=== PATIENT | female | born 1975 | race Caucasian/White ===

== ENCOUNTER → 2016-12-30 | Emergency (ER) | payer SELFPAY ==
[~2016-12-30] MED LIST: KETOROLAC TROMETHAMINE 30 MG/1 ML VIAL IVPUSH ONE; KETOROLAC TROMETHAMINE 30 MG/1 ML VIAL ONE; ONDANSETRON 4 MG/2 ML VIAL IVPB ONE; ONDANSETRON 4 MG/2 ML VIAL ONE; PENICILLIN G BENZATHINE 2,400,000 UNIT/4 ML PFS ONE; SODIUM CHLORIDE 1,000 ML IV STA; morphine CARPU-JECT 4 MG/1 ML DISP.SYRIN IVPUSH ONE; morphine CARPU-JECT 4 MG/1 ML DISP.SYRIN ONE
--- NOTE | 2016-12-30 01:55 | PDOC ---
History of Present Illness - General History Source: Patient Exam Limitations: No Limitations - History of Present Illness Initial Comments: 12/30/16 02:28 The patient is a 41 year old female, with a significant past medical history of hypertension, who presents to the emergency department complaining of abdominal pain for approximately 1 day. The patient reports the pain began yesterday morning and was localized at the umbilicus. However, as the the day went on, the pain radiated into the RLQ. She reports associated nausea and 4 episodes of nonbloody/nonbilious vomiting. The patient denies diarrhea or constipation. She states she took tylenol and midol with no relief of symptoms. She reports similar abdominal pain approximately 2 months ago. The patient reports she has an IUD in place. The patient denies any fever, chills, cough, headache or dizziness. The patient denies any dysuria, hematuria, frequency, or urgency. The patient denies any recent travel or sick contacts. Allergies: None reported. Past Surgical History: None reported. Social History: Non-smoker. Denies alcohol or drug use. <Judith Prescott - Last Filed: 12/30/16 05:29> - General History Source: Patient <Lukas Maldonado - Last Filed: 12/30/16 05:45> - General Stated Complaint: ABD PAIN Time Seen by Provider: 12/30/16 01:55 Past History <Judith Prescott - Last Filed: 12/30/16 05:29> - Past Medical History HTN: Yes - Psycho/Social/Smoking Cessation Hx Anxiety: No Suicidal Ideation: No Smoking History: Never smoked Have you smoked in the past 12 months: No Hx Alcohol Use: No Drug/Substance Use Hx: No Substance Use Type: None <BooneLukas rendon - Last Filed: 12/30/16 05:45> - Past Medical History Allergies/Adverse Reactions: Allergies Allergy/AdvReac Type Severity Reaction Status Date / Time No Known Allergies Allergy Verified 12/30/16 01:59 Home Medications: Ambulatory Orders Amlodipine Besylate [Norvasc -] 2.5 mg PO BID #14 tab 05/24/16 Ibuprofen 800 mg PO TID #30 tablet 12/30/16 Review of Systems - Review of Systems Able to Perform ROS?: Yes Comments:: 12/30/16 02:29 CONSTITUTIONAL: Absent: fever, no chills, no fatigue EYES: Absent: visual changes ENT: Absent: ear pain, no sore throat CARDIOVASCULAR: Absent: chest pain, no palpitations RESPIRATORY: Absent: cough, no SOB GI: Present: +RLQ abdominal pain, +pain along the umbilicus, +nausea, +vomiting Absent: no constipation, no diarrhea GENITOURINARY: Absent: dysuria, no frequency, no hematuria MUSCULOSKELETAL: Absent: back pain, no arthralgia, no myalgia SKIN: Absent: rash NEURO: Absent: headache <KenyonErnestinacanelo - Last Filed: 12/30/16 05:29> *Physical Exam - Vital Signs Last Vital Signs Temp Pulse Resp BP Pulse Ox 97.5 F L 75 20 184/116 100 12/30/16 01:59 12/30/16 01:59 12/30/16 01:59 12/30/16 01:59 12/30/16 01:59 - Physical Exam Comments: 12/30/16 02:30 GENERAL: Well-appearing, well-nourished. No apparent distress. HEENT: Normocephalic, atraumatic. PERRL, EOM intact. CARDIOVASCULAR: Normal S1, S2. Regular rate and rhythm. PULMONARY: Clear to auscultation bilaterally. ABDOMINAL: Soft. Non-distended. Tenderness to palpation to the RLQ, but no guarding or rebound. Positive McBurneys point. Positive Rovsings. No organomegaly. Normoactive bowel sounds. EXTREMITIES: Normal ROM in all four extremities. No gross deformities. SKIN: Warm, dry. No rash NEUROLOGICAL: No focal neurological deficits. <Judith Prescott - Last Filed: 12/30/16 05:29> Heart Score/ECG Review - ECG Impressions Comment:: 12/30/16 05:29 Vent. Rate: 92 bpm IMPRESSION: Normal sinus rhythm. Possible left atrial enlargement. <Judith Prescott - Last Filed: 12/30/16 05:29> ED Treatment Course - LABORATORY CBC & Chemistry Diagram: 12/30/16 02:42 12/30/16 02:42 - RADIOLOGY Radiograph Interpretation: 12/30/16 05:30 EXAM: CT abdomen and pelvis INTERPRETED BY: Dr. Ortega REVIEWED BY: Dr. Maldonado IMPRESSION: No bowel obstruction, colitis, free fluid or free air. Normal appendix. Unremarkable pancreas, kidneys and gallbladder. IUD in uterus. Small umbilical hernia containing fat. <Judith Prescott - Last Filed: 12/30/16 05:29> - LABORATORY CBC & Chemistry Diagram: 12/30/16 02:42 12/30/16 02:42 <Lukas Maldonado - Last Filed: 12/30/16 05:45> Medical Decision Making - Medical Decision Making 12/30/16 05:45 Dr. Maldonado: The scribe's documentation has been prepared under my direction and personally reviewed by me in its entirery. I confirm that the note above accurately reflects all work, treatment, procedures, and medical decision making performed by me. <Lukas Maldonado - Last Filed: 12/30/16 05:45> *DC/Admit/Observation/Transfer - Attestations Scribe Attestion: 12/30/16 02:30 Documentation prepared by Judith Prescott, acting as medical staff physician for Lukas Maldonado DO. <Judith Prescott - Last Filed: 12/30/16 05:29> - Discharge Dispostion Admit: No <Lukas Maldonado - Last Filed: 12/30/16 05:45> Diagnosis at time of Disposition: Umbilical hernia Qualifiers: Obstruction and gangrene presence: without obstruction or gangrene Qualified Code(s): K42.9 - Umbilical hernia without obstruction or gangrene - Discharge Dispostion Disposition: HOME Condition at time of disposition: Stable - Referrals Referrals: Freddie Martin MD [Staff Physician] - - Patient Instructions Printed Discharge Instructions: DI Umbilical Hernia-Child Print Language: ESTONIAN
[2016-12-30 02:00] VITALS: BMI 30.9
[2016-12-30 02:56] LABS: BASOPHIL 0.5 % (0-2.0); EOSINOPHIL 0.9 % (0-4.5); MCH 20.5 pg (25.7-33.7); MEAN CELL VOLUME 66.1 fl (80-96); MEAN PLT VOLUME 9.4 fl (7.5-11.1); NEUTROPHILS 82.7 % (42.8-82.8); PLATELET COUNT 205 K/MM3 (134-434); RDW 17.5 % (11.6-15.6); URINE APPEARANCE CLEAR; URINE BILIRUBIN NEGATIVE (NEGATIVE); URINE GLUCOSE (UA) NEGATIVE (NEGATIVE); URINE KETONE NEGATIVE (NEGATIVE); URINE NITRITE NEGATIVE (NEGATIVE); URINE UROBILINOGEN NEGATIVE E.U./dl (0.2-1.0)
[2016-12-30 02:57] LABS: URINE BLOOD 3+ (NEGATIVE); URINE COLOR PINK; URINE LEUK ESTERASE TRACE (NEGATIVE); URINE PROTEIN 1+ (NEGATIVE)
[2016-12-30 03:05] LABS: URINE MUCUS RARE; URINE RBC 3066 /hpf (0-3); URINE WBC 44 /hpf (3-5)
[2016-12-30 03:17] LABS: ANION GAP 11 (8-16); CALCIUM 8.7 mg/dL (8.5-10.1); CO2 24 mmol/L (21-32); CREATININE 0.7 mg/dL (0.55-1.02); GLUCOSE,RANDOM 104 mg/dL (74-106); SGOT/AST 18 U/L (15-37); SGPT/ALT 29 U/L (12-78); TOT PROT 8.3 g/dl (6.4-8.2)
[2016-12-30 03:18] LABS: ALK PHOS 107 U/L (45-117)
[2016-12-30 06:40] VITALS: BP 160/95; PULSE 88; TEMP 98.9
--- NOTE | 2016-12-30 16:34 | EKG ---
Test Reason : Blood Pressure : / mmHG Vent. Rate : 092 BPM Atrial Rate : 092 BPM P-R Int : 126 ms QRS Dur : 074 ms QT Int : 374 ms P-R-T Axes : 039 033 021 degrees QTc Int : 462 ms NORMAL SINUS RHYTHM POSSIBLE LEFT ATRIAL ENLARGEMENT NO PREVIOUS ECGS AVAILABLE Confirmed by MD RAVINDRA, MAYLIN ([id number]) on 12/30/2016 4:34:46 PM Referred By: Confirmed By:MAYLIN WAITE MD
== END | disposition home or self-care (01) ==
LOC: JER 01:10
PROC: 3E033NZ Introduction of Analgesics, Hypnotics, Sedatives into Peripheral Vein, Percutaneous Approach (ICD-10-PCS; principal; 2016-12-30)
PROC: 3E0333Z Introduction of Anti-inflammatory into Peripheral Vein, Percutaneous Approach (ICD-10-PCS; 2016-12-30)
PROC: 3E033GC Introduction of Other Therapeutic Substance into Peripheral Vein, Percutaneous Approach (ICD-10-PCS; 2016-12-30)
DX: K42.9 Umbilical hernia without obstruction or gangrene (principal); I10 Essential (primary) hypertension
CPT/HCPCS: 36415; 74177-TC; 80053; 81003; 81015; 83690; 84703; 85025; 93005; 93010; 99282-25

== ENCOUNTER 2017-01-02 21:34 | Emergency (ER) | payer SELFPAY ==
[2017-01-02 21:44] VITALS: BP 168/112; PULSE 121; TEMP 101.1; BMI 24.4
--- NOTE | 2017-01-02 22:02 | PDOC ---
History of Present Illness - General History Source: Patient Exam Limitations: No Limitations - History of Present Illness Initial Comments: 01/02/17 22:22 The patient is a 41 year old female with significant past medical history of hypertension who presents to the ED with 1 day of fever. Patient reports she developed a fever with tmax of 101. She also has complaints of sore throat for the past week. She denies chills and diaphoresis. Patient was seen here on 12/30 for abdominal pain where she had a abdomen/pelvis CT that revealed a small umbilical hernia containing fat. She was treated and discharged. At time of evaluation, she denies abdominal pain, nausea, vomiting, or diarrhea. The patient denies fever, cough, SOB, chest pain, and palpitations. Allergies: NKDA Social History: No alcohol, tobacco, or drug use reported. Past Surgical History: None reported PCP: None reported <Shaye Tovar - Last Filed: 01/02/17 22:22> <Ted Solo - Last Filed: 01/02/17 22:55> - General Chief Complaint: Pain, Acute Stated Complaint: FEVER/CHILLS Past History <Shaye Tovar - Last Filed: 01/02/17 22:22> - Past Medical History HTN: Yes - Immunization History Immunization Up to Date: Yes - Psycho/Social/Smoking Cessation Hx Anxiety: No Suicidal Ideation: No Smoking History: Never smoked Have you smoked in the past 12 months: No Hx Alcohol Use: No Drug/Substance Use Hx: No Substance Use Type: None <Ted Solo - Last Filed: 01/02/17 22:55> - Past Medical History Allergies/Adverse Reactions: Allergies Allergy/AdvReac Type Severity Reaction Status Date / Time No Known Allergies Allergy Verified 01/02/17 21:42 Home Medications: Ambulatory Orders Amlodipine Besylate [Norvasc -] 2.5 mg PO BID #14 tab 05/24/16 Ibuprofen 800 mg PO TID #30 tablet 12/30/16 Review of Systems - Review of Systems Able to Perform ROS?: Yes Comments:: 01/02/17 22:22 CONSTITUTIONAL: +fever Absent: no chills, no fatigue EYES: Absent: visual changes ENT: +sore throat Absent: ear pain CARDIOVASCULAR: Absent: chest pain, no palpitations RESPIRATORY: Absent: cough, no SOB GI: Absent: abdominal pain, no nausea, no vomiting, no constipation, no diarrhea GENITOURINARY: Absent: dysuria, no frequency, no hematuria MUSKULOSKELETAL: Absent: back pain, no arthralgia, no myalgia SKIN: Absent: rash NEURO: Absent: headache <Shaye Tovar - Last Filed: 01/02/17 22:22> *Physical Exam - Vital Signs Last Vital Signs Temp Pulse Resp BP Pulse Ox 101.1 F H 121 H 18 168/112 97 01/02/17 21:42 01/02/17 21:42 01/02/17 21:42 01/02/17 21:42 01/02/17 21:42 - Physical Exam Comments: 01/02/17 22:22 GENERAL: Well-appearing, well-nourished. No apparent distress. HEENT: Normocephalic, atraumatic. PERRL, EOM intact. Swollen red tonsils with exudates. No airway compromise. Tenderness to the anterior cervical lymphadenopathy. CARDIOVASCULAR: Normal S1, S2. Regular rate and rhythm. PULMONARY: Clear to auscultation bilaterally. No stridor. ABDOMEN: Soft, non-distended, non-tender. EXTREMITIES: Normal ROM in all four extremities. No gross deformities. SKIN: Warm, dry. No rash NEUROLOGICAL: No focal neurological deficits. <Shaye Tovar - Last Filed: 01/02/17 22:22> - Vital Signs Last Vital Signs Temp Pulse Resp BP Pulse Ox 101.1 F H 121 H 18 168/112 97 01/02/17 21:42 01/02/17 21:42 01/02/17 21:42 01/02/17 21:42 01/02/17 21:42 <Ted Solo - Last Filed: 01/02/17 22:55> *DC/Admit/Observation/Transfer - Attestations Scribe Attestion: 01/02/17 22:22 Documentation prepared by Shaye Tovar, acting as medical services assistant for Ted Solo MD, <Shaye Tovar - Last Filed: 01/02/17 22:22> - Discharge Dispostion Admit: No <Ted Solo - Last Filed: 01/02/17 22:55> Diagnosis at time of Disposition: Strep tonsillitis - Discharge Dispostion Disposition: HOME Condition at time of disposition: Stable
[2017-01-02] MEDS ORDERED: PENICILLIN G BENZATHINE 1,200,000 UNIT/2 ML PFS IM ONE (22:52)
== END 2017-01-02 23:12 | disposition home or self-care (01) ==
LOC: JER 21:34
DX: J03.00 Acute streptococcal tonsillitis, unspecified (principal); I10 Essential (primary) hypertension
CPT/HCPCS: 87070; 87430; 99281-25